=== PATIENT | female | born 1970 | race Caucasian/White ===

== ENCOUNTER 2016-10-16 21:10 | Emergency (ER) | payer MEDICARE ==
[2016-10-17 00:04] LABS: ABSOLUTE NEUTROPHIL COUNT 6.8 K/mm3 (1.8-7.7); BASO # 0.1 K/mm3 (0.0-0.2); BASO % 0.6 % (0.2-1.0); HEMATOCRIT 39.6 % (37.0-47.0); HEMOGLOBIN 12.7 gm/l (12.0-16.0); IMM NEUT% 0.4 % (0-1); LYMPH # 1.9 (1.0-4.8); LYMPH % 20.6 % (15-45); MEAN CELL VOLUME 89.2 fl (81.0-99.0); MEAN CORPUSCULAR HEMOGLOBIN 28.6 pg (27.0-31.0); MEAN CORPUSCULAR HGB CONC 32.1 g/dl (33.0-37.0); MEAN PLATELET VOLUME 10.6 fl (7.4-10.4); MONO # 0.3 (0.0-0.8); NEUT % 75.4 % (43-75); PLATELET COUNT 262 K/mm3 (130-400); RED CELL DISTRIBUTION WIDTH 13.8 % (11.5-14.5)
[2016-10-17 00:15] LABS: ALB/GLOB RATIO 0.8 (>1.0); ALBUMIN 2.9 gm/dL (3.5-5.7); CALCIUM 9.1 mg/dL (8.6-10.3)
[2016-10-17 00:32] LABS: SPECIFIC GRAVITY 1.015 (1.001-1.030); URINE BILIRUBIN NEGATIVE (NEGATIVE); URINE BLOOD TRACE (NEGATIVE); URINE GLUCOSE (UA) 2+ (NEGATIVE); URINE LEUKOCYTE ESTERASE NEGATIVE (NEGATIVE); URINE NITRITE NEGATIVE (NEGATIVE); URINE PROTEIN 2+ (NEGATIVE); URINE UROBILINOGEN NORMAL (0-1 mg/dl)
[2016-10-17 00:35] LABS: URINE APPEARANCE HAZY; URINE COLOR YELLOW
[2016-10-17 00:46] LABS: URINE BACTERIA 2+; URINE CASTS 2-4 HYALINE /lpf
== END 2016-10-17 01:39 | disposition home or self-care (01) ==
LOC: ED 21:10
DX: R11.10 Vomiting, unspecified (principal); I12.9 Hypertensive chronic kidney disease with stage 1 through stage 4 chronic kidney disease, or unspecified chronic kidney disease; E10.22 Type 1 diabetes mellitus with diabetic chronic kidney disease; N18.9 Chronic kidney disease, unspecified; Z86.73 Personal history of transient ischemic attack (TIA), and cerebral infarction without residual deficits

== ENCOUNTER 2016-11-17 20:11 | Emergency (ER) | payer MEDICARE ==
[2016-11-17] MEDS ORDERED: METHOCARBAMOL 750 MG TABLET ONE (23:25)
[2016-11-17 23:28] LABS: ABSOLUTE NEUTROPHIL COUNT 5.5 K/mm3 (1.8-7.7); BASO % 0.5 % (0.2-1.0); EOS # 0.1 (0.0-0.5); EOS % 1.6 % (0.9-2.9); HEMATOCRIT 42.7 % (37.0-47.0); HEMOGLOBIN 13.6 gm/l (12.0-16.0); IMM NEUT # 0.1 K/mm3 (0-0.2); IMM NEUT% 0.6 % (0-1); LYMPH # 2.1 (1.0-4.8); LYMPH % 25.6 % (15-45); MEAN CELL VOLUME 89.7 fl (81.0-99.0); MEAN CORPUSCULAR HEMOGLOBIN 28.6 pg (27.0-31.0); MEAN CORPUSCULAR HGB CONC 31.9 g/dl (33.0-37.0); MONO # 0.4 (0.0-0.8); MONO % 5.3 % (4-12); NEUT % 66.4 % (43-75); PLATELET COUNT 271 K/mm3 (130-400); RED CELL DISTRIBUTION WIDTH 13.7 % (11.5-14.5)
[2016-11-17 23:41] LABS: INR 1.96; PROTHROMBIN TIME 21.3 SECONDS (9.3-11.4)
--- NOTE | 2016-11-18 08:07 | CT ---
Exam: CT abdomen and pelvis without contrast COMPARISON: 08/05/2016, 02/27/2008 INDICATION: Ground-level fall one day ago, concern for retroperitoneal hematoma. TECHNIQUE: CT examination of the abdomen and pelvis was obtained without contrast using a renal stone protocol. FINDINGS: There is no retroperitoneal hematoma. Sagittal alignment of the spine is normal. There has been an interval inferior endplate fracture of T9 with minor surrounding inflammatory stranding/hematoma. There is approximately 25% loss of height. Posterior vertebral body is intact. No additional concern for acute fracture is identified. Several subacute rib fractures are seen within the anterior left chest wall. More chronic rib fractures are seen within the right anterior chest wall. Dense vascular calcifications are seen throughout the abdomen and pelvis. There is a moderate amount of stool throughout the colon. There is no bowel obstruction, free air or free intraperineal fluid. The appendix is normal. Post supracervical hysterectomy. Left ovary appears to remain is unremarkable. There is no adnexal mass. The liver, spleen, kidneys and adrenal glands are unremarkable. Nonspecific perinephric stranding is noted about the kidneys and is unchanged. There is a globally atrophic pancreas. Lung bases are clear. Tiny hiatal hernia is noted. IMPRESSION: 1. New inferior endplate fracture of T9 since 08/05/2016, acute to subacute. Correlate with any pain in this location. 2. No retroperitoneal hematoma. 3. Several anterior rib fractures, chronic and subacute. 4. Otherwise, stable exam since 08/05/2016 without significant interval change. Preliminary report transmitted to the emergency department from [facility] at 2318 hours 11/17/2016.
== END 2016-11-18 00:16 | disposition home or self-care (01) ==
LOC: ED 20:11
DX: S22.070A Wedge compression fracture of T9-T10 vertebra, initial encounter for closed fracture (principal); R11.2 Nausea with vomiting, unspecified; I10 Essential (primary) hypertension; Z79.01 Long term (current) use of anticoagulants; W19.XXXA Unspecified fall, initial encounter; Y92.009 Unspecified place in unspecified non-institutional (private) residence as the place of occurrence of the external cause